=== PATIENT | male | born 1965 | race African-American/Black ===

== ENCOUNTER 2019-08-25 06:41 | Emergency (ER) | payer SELFPAY ==
[~2019-08-25] VITALS: Ht 180.3 cm; Wt 117.9 kg
[2019-08-25 07:10] LABS: BASO % 1 % (0-3); EOS # 0.1 x10^3/uL (0.0-0.7); EOS % 2 % (0-3); HEMATOCRIT 45.3 % (39.0-53.0); HEMOGLOBIN 15.4 g/dL (13.0-17.5); LYMPH # 1.6 x10^3/uL (1.0-4.8); LYMPH % 20 % (24-48); MEAN CORPUSCULAR HEMOGLOBIN 31 pg (25-35); MEAN CORPUSCULAR HGB CONC 34 g/dL (31-37); MEAN CORPUSCULAR VOLUME 90 fL (79-100); MONO # 0.3 x10^3/uL (0.0-1.1); MONO % 4 % (0-9); NEUT % 75 % (31-73); PLATELET COUNT 263 x10^3/uL (140-400); RED BLOOD COUNT 5.02 x10^6/uL (4.30-5.70); RED CELL DISTRIBUTION WIDTH 13.8 % (11.5-14.5)
[2019-08-25] MEDS: ONDANSETRON PF 4 MG/2 ML VIAL. IV ONE (07:16)
[2019-08-25] MEDS: ORPHENADRINE CITRATE 60 MG/2 ML VIAL. IV ONE (07:16)
[2019-08-25 07:17] LABS: CALCIUM 9.4 mg/dL (8.5-10.1); CREATININE 1.3 mg/dL (0.7-1.3); POTASSIUM 4.9 mmol/L (3.5-5.1)
[2019-08-25] MEDS: MORPHINE SULFATE 4 MG/ML VIAL. IV ONE (07:17)
[2019-08-25 07:23] LABS: ALBUMIN/GLOBULIN RATIO 0.9 (1.0-1.7); TOTAL BILIRUBIN 0.4 mg/dL (0.2-1.0); TOTAL PROTEIN 8.6 g/dL (6.4-8.2)
[2019-08-25] MEDS ORDERED: OXYC1TAB22 PO (07:33)
[2019-08-25] MEDS ORDERED: METH-38 PO (07:33)
[2019-08-25] MEDS ORDERED: LEVO500T59 PO (07:33)
[2019-08-25] MEDS ORDERED: PRED20TA PO (07:33)
--- NOTE | 2019-08-25 08:01 | RAD ---
AP and lateral soft tissue neck. HISTORY: Dyspnea, recent cervical laminectomy AP and lateral soft tissue views were taken of the neck. There is significant retropharyngeal soft tissue swelling. CT scan of the neck could be of benefit. There are artificial disks at C5-6 and C6-7. There is mild scoliosis on the AP view of the cervical spine. Epiglottis is not enlarged. Tonsils are not prominent. IMPRESSION: 1. Retropharyngeal soft tissue swelling. Electronically signed by: Hammad Mcmillan MD (08/25/2019 7:59 AM) [facility]
--- NOTE | 2019-08-25 08:02 | RAD ---
AP chest. HISTORY: Dyspnea, recent cervical laminectomy AP view was taken of the chest. Patient's taken a poor inspiration. There is linear atelectasis along the right diaphragm. Heart is normal in size. There is no pleural effusion. No other infiltrates are noted. IMPRESSION: 1. Poor inspiration with mild linear atelectasis right lung base. Electronically signed by: Hammad Mcmillan MD (08/25/2019 7:59 AM) [facility]
--- NOTE | 2019-08-25 08:18 | PHYS DOC ---
Past Medical History Past Medical History: No Pertinent History Past Surgical History: Other Additional Past Surgical Histo: CERVICAL LAMINECTOMY Alcohol Use: None Drug Use: None Adult General Chief Complaint Chief Complaint: SHORTNESS OF BREATH HPI HPI Patient is a 54-year-old male who presents with complaint of upper back and neck pain along with shortness of breath and painful swallowing. Patient had a cervical laminectomy on August 19 and patient has been symptomatic since that time. He denies any chest pain. Patient rates the pain in his back and a 10 out of 10. He also complains of pain around the surgical incision site.[] Review of Systems Review of Systems Constitutional: Denies fever or chills [] Respiratory: Denies cough. Complains of shortness of breath [] Cardiovascular: No additional information not addressed in HPI [] GI: Denies abdominal pain, nausea, vomiting or diarrhea [] Integument: Denies rash or skin lesions [] Neurologic: Denies headache, focal weakness or sensory changes [] All other systems were reviewed and found to be within normal limits, except as documented in this note. Current Medications Current Medications Current Medications Medications (Trade) Dose Ordered Sig/Kellen Start Time Stop Time Status Last Admin Dose Admin Info (CONTRAST GIVEN -- Rx MONITORING) 1 each PRN DAILY PRN 08/25/19 09:00 08/27/19 08:59 Iohexol (Omnipaque 300 Mg/ml) 60 ml 1X ONCE 08/25/19 09:00 08/25/19 09:01 DC 08/25/19 09:04 60 ML Lorazepam (Ativan Inj) 1 mg 1X ONCE 08/25/19 07:15 08/25/19 07:16 DC 08/25/19 07:16 1 MG Morphine Sulfate (Morphine Sulfate) 4 mg 1X ONCE 08/25/19 07:15 08/25/19 07:16 DC 08/25/19 07:17 4 MG Ondansetron HCl (Zofran) 4 mg 1X ONCE 08/25/19 07:15 08/25/19 07:16 DC 08/25/19 07:16 4 MG Orphenadrine Citrate (Norflex) 60 mg 1X ONCE 08/25/19 07:15 08/25/19 07:16 DC 08/25/19 07:16 60 MG Allergies Allergies Allergies Coded Allergies Type Severity Reaction Last Updated Verified diphenhydramine Allergy Unknown 08/25/19 Yes Uncoded Allergies Type Severity Reaction Last Updated Verified THEREFLU Allergy Unknown 08/25/19 Physical Exam Physical Exam Constitutional: Well developed, well nourished, no acute distress, non-toxic appearance. [] HENT: Normocephalic, atraumatic, bilateral external ears normal, oropharynx moist, no oral exudates, nose normal. [] Eyes: PERRLA, EOMI, conjunctiva normal, no discharge. [] Neck: Normal range of motion, no tenderness, supple, no stridor. [] Cardiovascular:Heart rate regular rhythm, no murmur [] Lungs & Thorax: Bilateral breath sounds clear to auscultation [] Abdomen: Bowel sounds normal, soft, no tenderness, no masses, no pulsatile masses. [] Skin: Warm, dry, no erythema, no rash. [] Back: No tenderness, no CVA tenderness. [] Extremities: No tenderness, no cyanosis, no clubbing, ROM intact, no edema. [] Neurologic: Alert and oriented X 3, normal motor function, normal sensory function, no focal deficits noted. [] Psychologic: Affect normal, judgement normal, mood normal. [] Current Patient Data Vital Signs Vital Signs Date Time Temp Pulse Resp B/P (MAP) Pulse Ox O2 Delivery O2 Flow Rate FiO2 08/25/19 06:54 98.0 72 16 181/99 (126) 100 Room Air 98.0 Lab Values Laboratory Tests Test 08/25/19 07:00 White Blood Count 8.0 x10^3/uL (4.0-11.0) Red Blood Count 5.02 x10^6/uL (4.30-5.70) Hemoglobin 15.4 g/dL (13.0-17.5) Hematocrit 45.3 % (39.0-53.0) Mean Corpuscular Volume 90 fL (79-100) Mean Corpuscular Hemoglobin 31 pg (25-35) Mean Corpuscular Hemoglobin Concent 34 g/dL (31-37) Red Cell Distribution Width 13.8 % (11.5-14.5) Platelet Count 263 x10^3/uL (140-400) Neutrophils (%) (Auto) 75 % (31-73) H Lymphocytes (%) (Auto) 20 % (24-48) L Monocytes (%) (Auto) 4 % (0-9) Eosinophils (%) (Auto) 2 % (0-3) Basophils (%) (Auto) 1 % (0-3) Neutrophils # (Auto) 6.0 x10^3/uL (1.8-7.7) Lymphocytes # (Auto) 1.6 x10^3/uL (1.0-4.8) Monocytes # (Auto) 0.3 x10^3/uL (0.0-1.1) Eosinophils # (Auto) 0.1 x10^3/uL (0.0-0.7) Basophils # (Auto) 0.0 x10^3/uL (0.0-0.2) Sodium Level 137 mmol/L (136-145) Potassium Level 4.9 mmol/L (3.5-5.1) Chloride Level 100 mmol/L (98-107) Carbon Dioxide Level 28 mmol/L (21-32) Anion Gap 9 (6-14) Blood Urea Nitrogen 17 mg/dL (8-26) Creatinine 1.3 mg/dL (0.7-1.3) Estimated GFR (Cockcroft-Gault) 58.0 BUN/Creatinine Ratio 13 (6-20) Glucose Level 122 mg/dL (70-99) H Calcium Level 9.4 mg/dL (8.5-10.1) Total Bilirubin 0.4 mg/dL (0.2-1.0) Aspartate Amino Transferase (AST) 17 U/L (15-37) Alanine Aminotransferase (ALT) 32 U/L (16-63) Alkaline Phosphatase 76 U/L (46-116) Troponin I Quantitative < 0.017 ng/mL (0.000-0.055) XG-Ora-Y-Type Natriuretic Peptide 28 pg/mL (0-124) Total Protein 8.6 g/dL (6.4-8.2) H Albumin 4.0 g/dL (3.4-5.0) Albumin/Globulin Ratio 0.9 (1.0-1.7) L Laboratory Tests 08/25/19 07:00 Laboratory Tests 08/25/19 07:00 EKG EKG [] Radiology/Procedures Radiology/Procedures [] Impressions: PROCEDURE: NECK SOFT TISSUE AP and lateral soft tissue neck. HISTORY: Dyspnea, recent cervical laminectomy AP and lateral soft tissue views were taken of the neck. There is significant retropharyngeal soft tissue swelling. CT scan of the neck could be of benefit. There are artificial disks at C5-6 and C6-7. There is mild scoliosis on the AP view of the cervical spine. Epiglottis is not enlarged. Tonsils are not prominent. IMPRESSION: 1. Retropharyngeal soft tissue swelling. Electronically signed by: Manuel Avery MD (08/25/2019 7:59 AM) [facility] PROCEDURE: CT SOFT TISSUE NECK W/CONTRAST CT neck with contrast. HISTORY: Dyspnea swelling noted on x-rays in the neck. CT scan the neck was done using 60 mL Omnipaque 300 contrast. Upper lobes the lungs are clear. Thyroid is homogeneous. There is no adenopathy in the neck. Parotid and submandibular glands are unremarkable. Epiglottis is unremarkable. There is retropharyngeal soft tissue swelling. A definitive abscess is not identified. There is no abnormal air in the soft tissues. There are artificial disc which create mild artifact at C5-6 and C6-7. C-spine is in normal alignment. IMPRESSION: 1. Retropharyngeal soft tissue swelling. 2. A definitive abscess is not identified. 3. No abnormal air in the soft tissues. 4. C-spine is in normal alignment. 5. Artificial disks appear in good position. PQRS Compliance Statement: One or more of the following individualized dose reduction techniques were utilized for this examination: 1. Automated exposure control 2. Adjustment of the mA and/or kV according to patient size 3. Use of iterative reconstruction technique Electronically signed by: Manuel Avery MD (08/25/2019 9:16 AM) [facility] DICTATED and SIGNED BY: MANUEL AVERY MD DATE: 08/25/19 0916 Course & Med Decision Making Course & Med Decision Making Pertinent Labs and Imaging studies reviewed. (See chart for details) [] Dragon Disclaimer Dragon Disclaimer This electronic medical record was generated, in whole or in part, using a voice recognition dictation system. Departure Departure Impression: Primary Impression: Dyspnea Additional Impressions: Muscle spasm of back Anxiety Disposition: HOME, SELF-CARE Condition: STABLE Referrals: NON,STAFF (PCP) Patient Instructions: Anxiety and Panic Attacks, Back Pain, Adult, Muscle Cramps Scripts Diazepam (VALIUM) 5 Mg Tablet 5 MG PO BID PRN for ANXIETY / AGITATION, #14 TAB Prov: DYLON GUALLPA Jr. DO 08/25/19 Orphenadrine Citrate (ORPHENADRINE CITRATE) 100 Mg Tablet.er 1 TAB PO BID PRN for MUSCLE SPASMS, #14 TAB Prov: DYLON GUALLPA Jr. DO 08/25/19 Problem Qualifiers Primary Impression: Dyspnea Dyspnea type: unspecified Qualified Codes: R06.00 - Dyspnea, unspecified DYLON GUALLPA Jr. DO Aug 25, 2019 08:18
[2019-08-25] MEDS ORDERED: CONTRAST GIVEN. MC PRN (09:00)
[2019-08-25] MEDS: IOHEXOL 300 MG/ML 100ML VIAL. IV ONE (09:04)
--- NOTE | 2019-08-25 09:19 | RAD ---
CT neck with contrast. HISTORY: Dyspnea swelling noted on x-rays in the neck. CT scan the neck was done using 60 mL Omnipaque 300 contrast. Upper lobes the lungs are clear. Thyroid is homogeneous. There is no adenopathy in the neck. Parotid and submandibular glands are unremarkable. Epiglottis is unremarkable. There is retropharyngeal soft tissue swelling. A definitive abscess is not identified. There is no abnormal air in the soft tissues. There are artificial disc which create mild artifact at C5-6 and C6-7. C-spine is in normal alignment. IMPRESSION: 1. Retropharyngeal soft tissue swelling. 2. A definitive abscess is not identified. 3. No abnormal air in the soft tissues. 4. C-spine is in normal alignment. 5. Artificial disks appear in good position. PQRS Compliance Statement: One or more of the following individualized dose reduction techniques were utilized for this examination: 1. Automated exposure control 2. Adjustment of the mA and/or kV according to patient size 3. Use of iterative reconstruction technique Electronically signed by: Hammad Mcmillan MD (08/25/2019 9:16 AM) [facility]
[2019-08-25] MEDS ORDERED: ORPH100T PO (09:41)
[2019-08-25] MEDS ORDERED: DIAZ5TAB PO (09:41)
[2019-08-25 09:42] VITALS: BP 150/92
--- NOTE | 2019-08-26 07:29 | EKG ---
[facility] [address] [place] [address] Test Date: 2019-08-25 Test Time: 06:50:39 Pat Name: ZHANE HOOD Department: Room: Gender: M Paleologist: : 1965 Requested By: DYLON GUALLPA Order Number: [id number] Reading MD: Measurements Intervals [place] Rate: 69 P: 34 ME: 128 QRS: 4 QRSD: 78 T: 3 QT: 356 QTc: 383 Interpretive Statements SINUS RHYTHM NO SPECIFIC ECG ABNORMALITIES RI6.01 No previous ECG available for comparison
== END 2019-08-25 09:45 | disposition home or self-care (01) ==
LOC: ER 06:41
DX: R06.00 Dyspnea, unspecified (principal); M62.830 Muscle spasm of back; F41.9 Anxiety disorder, unspecified; Z98.890 Other specified postprocedural states; Z88.8 Allergy status to other drugs, medicaments and biological substances; Z79.899 Other long term (current) drug therapy
CPT/HCPCS: 36415; 70360; 70491; 71045; 80053; 83880; 84484; 85025; 93005; 96374; 96375; 99285; J2060; J2270; J2360; J2405; Q9967

== ENCOUNTER 2021-12-15 23:35 | Emergency (ER) | payer MEDICAID ==
[~2021-12-15] VITALS: Ht 180.3 cm; Wt 84.0 kg
[~2021-12-15 23:35] MED LIST: CYCL10TA19 PO; DIAZ5TAB PO; HYDR-2769 PO; LEVO500T59 PO; METH-38 PO; METH-562 PO; ORPH100T PO; OXYC1TAB22 PO; PRED20TA PO; SULF-16 PO; SULF1TAB23 PO; TAPE50TA10 PO
[2021-12-16 00:28] LABS: BASO % 1 % (0-3); EOS # 0.2 x10^3/uL (0.0-0.7); EOS % 3 % (0-3); HEMATOCRIT 40.8 % (39.0-53.0); HEMOGLOBIN 13.8 g/dL (13.0-17.5); LYMPH # 1.6 x10^3/uL (1.0-4.8); LYMPH % 25 % (24-48); MEAN CORPUSCULAR HEMOGLOBIN 31 pg (25-35); MEAN CORPUSCULAR HGB CONC 34 g/dL (31-37); MEAN CORPUSCULAR VOLUME 90 fL (79-100); MONO # 0.6 x10^3/uL (0.0-1.1); MONO % 9 % (0-9); NEUT # 4.2 x10^3/uL (1.8-7.7); NEUT % 64 % (31-73); PLATELET COUNT 234 x10^3/uL (140-400); RED BLOOD COUNT 4.52 x10^6/uL (4.30-5.70); WHITE BLOOD COUNT 6.5 x10^3/uL (4.0-11.0)
[2021-12-16] MEDS ORDERED: CONTRAST GIVEN. MC PRN (00:30)
[2021-12-16 00:44] LABS: CALCIUM 9.1 mg/dL (8.5-10.1); CREATININE 1.2 mg/dL (0.7-1.3); GFR 76.3; POTASSIUM 4.2 mmol/L (3.5-5.1)
[2021-12-16 00:50] LABS: ALBUMIN 3.8 g/dL (3.4-5.0); ALBUMIN/GLOBULIN RATIO 1.1 (1.0-1.7); TOTAL BILIRUBIN 0.5 mg/dL (0.2-1.0); TOTAL PROTEIN 7.2 g/dL (6.4-8.2)
[2021-12-16] MEDS ORDERED: KETOROLAC 15 MG/ML VIAL. IVP ONE (01:00)
[2021-12-16] MEDS ORDERED: DICYCLOMINE 20 MG/2 ML VIAL. IM ONE (01:00)
[2021-12-16] MEDS ORDERED: IOHEXOL 350 MG/ML 100 ML VIAL. IV ONE (01:00)
[2021-12-16] MEDS ORDERED: IV NORMAL SALINE 1000ML BAG 1,000 ML IV ONE (01:00)
[2021-12-16] MEDS ORDERED: MORPHINE SULFATE 4 MG/ML INJ. IVP ONE (01:00)
[2021-12-16 03:52] VITALS: BP 175/97
--- NOTE | 2021-12-16 04:58 | PHYS DOC ---
Past Medical History Past Medical History: No Pertinent History Past Surgical History: Cervical Fusion, Lumbar Laminectomy, Other Additional Past Surgical Histo: Hernia repair Monday Smoking Status: Never Smoker Alcohol Use: None Drug Use: None Adult General Chief Complaint Chief Complaint: SHORTNESS OF BREATH [facility] HPI Patient is a 56 year old [f__sex] who presents with [] Review of Systems Review of Systems Constitutional: Denies fever or chills [] Eyes: Denies change in visual acuity, redness, or eye pain [] HENT: Denies nasal congestion or sore throat [] Respiratory: Denies cough or shortness of breath [] Cardiovascular: No additional information not addressed in HPI [] GI: Denies abdominal pain, nausea, vomiting, bloody stools or diarrhea [] : Denies dysuria or hematuria [] Musculoskeletal: Denies back pain or joint pain [] Integument: Denies rash or skin lesions [] Neurologic: Denies headache, focal weakness or sensory changes [] Endocrine: Denies polyuria or polydipsia [] All other systems were reviewed and found to be within normal limits, except as documented in this note. Current Medications Current Medications Current Medications Medications (Trade) Dose Ordered Sig/Kellen Start Time Stop Time Status Last Admin Dose Admin Dicyclomine HCl (Bentyl) 20 mg 1X ONCE 12/16/21 01:00 12/16/21 01:01 DC Info (CONTRAST GIVEN -- Rx MONITORING) 1 each PRN DAILY PRN 12/16/21 00:30 12/18/21 00:29 Iohexol (Omnipaque 350 Mg/ml) 100 ml 1X ONCE 12/16/21 01:00 12/16/21 01:01 DC Ketorolac Tromethamine (Toradol 15mg Vial) 15 mg 1X ONCE 12/16/21 01:00 12/16/21 01:01 DC Morphine Sulfate (Morphine Sulfate) 4 mg 1X ONCE 12/16/21 01:00 12/16/21 01:01 DC Sodium Chloride 1,000 ml @ 1,000 mls/hr 1X ONCE 12/16/21 01:00 12/16/21 01:59 Allergies Allergies Allergies Coded Allergies Type Severity Reaction Last Updated Verified acetaminophen Allergy Intermediate 12/16/21 Yes dextromethorphan Allergy Intermediate 12/16/21 Yes diphenhydramine Allergy Intermediate 12/16/21 Yes phenylephrine Allergy Intermediate 12/16/21 Yes Physical Exam Physical Exam Constitutional: Well developed, well nourished, no acute distress, non-toxic appearance. [] HENT: Normocephalic, atraumatic, bilateral external ears normal, oropharynx moist, no oral exudates, nose normal. [] Eyes: PERRLA, EOMI, conjunctiva normal, no discharge. [] Neck: Normal range of motion, no tenderness, supple, no stridor. [] Cardiovascular:Heart rate regular rhythm, no murmur [] Lungs & Thorax: Bilateral breath sounds clear to auscultation [] Abdomen: Bowel sounds normal, soft, no tenderness, no masses, no pulsatile masses. [] Skin: Warm, dry, no erythema, no rash. [] Back: No tenderness, no CVA tenderness. [] Extremities: No tenderness, no cyanosis, no clubbing, ROM intact, no edema. [] Neurologic: Alert and oriented X 3, normal motor function, normal sensory function, no focal deficits noted. [] Psychologic: Affect normal, judgement normal, mood normal. [] Current Patient Data Vital Signs Vital Signs Date Time Temp Pulse Resp B/P (MAP) Pulse Ox O2 Delivery O2 Flow Rate FiO2 12/15/21 23:51 74 180/87 (118) 97 12/15/21 23:50 98.3 20 Room Air 98.3 Lab Values Laboratory Tests Test 12/16/21 00:10 White Blood Count 6.5 x10^3/uL (4.0-11.0) Red Blood Count 4.52 x10^6/uL (4.30-5.70) Hemoglobin 13.8 g/dL (13.0-17.5) Hematocrit 40.8 % (39.0-53.0) Mean Corpuscular Volume 90 fL (79-100) Mean Corpuscular Hemoglobin 31 pg (25-35) Mean Corpuscular Hemoglobin Concent 34 g/dL (31-37) Red Cell Distribution Width 14.0 % (11.5-14.5) Platelet Count 234 x10^3/uL (140-400) Neutrophils (%) (Auto) 64 % (31-73) Lymphocytes (%) (Auto) 25 % (24-48) Monocytes (%) (Auto) 9 % (0-9) Eosinophils (%) (Auto) 3 % (0-3) Basophils (%) (Auto) 1 % (0-3) Neutrophils # (Auto) 4.2 x10^3/uL (1.8-7.7) Lymphocytes # (Auto) 1.6 x10^3/uL (1.0-4.8) Monocytes # (Auto) 0.6 x10^3/uL (0.0-1.1) Eosinophils # (Auto) 0.2 x10^3/uL (0.0-0.7) Basophils # (Auto) 0.0 x10^3/uL (0.0-0.2) Sodium Level 138 mmol/L (136-145) Potassium Level 4.2 mmol/L (3.5-5.1) Chloride Level 102 mmol/L (98-107) Carbon Dioxide Level 28 mmol/L (21-32) Anion Gap 8 (6-14) Blood Urea Nitrogen 12 mg/dL (8-26) Creatinine 1.2 mg/dL (0.7-1.3) Estimated GFR (Cockcroft-Gault) 76.3 BUN/Creatinine Ratio 10 (6-20) Glucose Level 103 mg/dL (70-99) H Calcium Level 9.1 mg/dL (8.5-10.1) Total Bilirubin 0.5 mg/dL (0.2-1.0) Aspartate Amino Transferase (AST) 21 U/L (15-37) Alanine Aminotransferase (ALT) 21 U/L (16-63) Alkaline Phosphatase 78 U/L (46-116) Total Protein 7.2 g/dL (6.4-8.2) Albumin 3.8 g/dL (3.4-5.0) Albumin/Globulin Ratio 1.1 (1.0-1.7) Laboratory Tests 12/16/21 00:10 Laboratory Tests 12/16/21 00:10 EKG EKG [] Radiology/Procedures Radiology/Procedures [] Course & Med Decision Making Course & Med Decision Making Pertinent Labs and Imaging studies reviewed. (See chart for details) [] Dragon Disclaimer Dragon Disclaimer This electronic medical record was generated, in whole or in part, using a voice recognition dictation system. Departure Departure Referrals: NO PCP (PCP) YORDY LUONG MD Dec 16, 2021 01:04
--- NOTE | 2021-12-16 06:40 | RAD ---
EXAM: CT ANGIOGRAM CHEST ABDOMEN AND PELVIS WITH CONTRAST INDICATION: Abdominal pain and distention. Recent ventral hernia repair 4 days ago. COMPARISON: CT chest abdomen pelvis 06/04/2020 TECHNIQUE: Helical CT angiogram imaging performed of the chest, abdomen and pelvis after administrati on of intravenous contrast. Sagittal and coronal reformats were obtained. MIPs were obtained. One or more of the following individualized dose reduction techniques were utilized for this examinat ion: 1. Automated exposure control 2. Adjustment of the mA and/or kV according to patient size 3. Use of iterative reconstruction technique. FINDINGS: CHEST: Pulmonary arteries: Contrast bolus is adequate to evaluate pulmonary arteries. There is no acute pulm onary embolism. Thyroid gland and thoracic inlet: Visual is portion of the thyroid gland is normal. Thoracic inlet is normal. Heart and great vessels: The heart is normal in size. There are coronary artery calcifications. Thora cic aorta is normal in caliber. No aortic dissection. Mediastinum and elio: No lymphadenopathy. Lungs and pleura: There are bandlike consolidative opacities in the left lower lobe. Mild scattered a telectasis elsewhere. A 6 cm nodule in the right lower lobe and a few 3 mm nodules in the right middl e lobe are unchanged from 06/04/2020 and require no follow-up. Unchanged calcified granulomas and scar ring in the right upper lobe. No pleural effusion or pneumothorax. Chest wall and axillae: No axillary lymphadenopathy. Bones: No acute osseous abnormality. ABDOMEN AND PELVIS: Liver: There is a calcified granuloma in the dome of the liver. No focal liver lesion. Gallbladder/Biliary Tree: Normal. Pancreas: Normal. Spleen: Normal. Adrenal Glands: Normal. Kidneys/Ureters/Bladder: Normal. No hydronephrosis. Reproductive Organs: Prostate gland is normal. Stomach, small bowel, and colon: The stomach is normal. There are mildly distended loops of distal sm all bowel. There is fecal material in the terminal ileum. Large volume of stool in the right hemicolo n. Mostly gas in the left hemicolon. There is sigmoid diverticulosis. Vasculature: No aortic aneurysm. Lymph Nodes: No lymphadenopathy. Peritoneum and retroperitoneum: There are surgical clips along the gastrohepatic ligament. Small amou nt of free air in the lower anterior abdomen and scattered subcutaneous gas in the anterior abdominal wall, likely related to recent ventral hernia repair. Bones: There are surgical changes of posterior fusion at L5-S1. IMPRESSION: 1. No acute pulmonary embolism. 2. Bandlike confluent opacities in the left lower lobe, likely atelectasis. Pneumonia not entirely ex cluded. 3. Mildly distended distal small bowel without transition point. There is fecal material in the termi nal ileum and a large volume of stool in the right hemicolon. Findings may relate to constipation. Pa rtial small bowel obstruction not excluded. 4. Small amount of free air in the anterior abdomen and subcutaneous gas in the abdominal wall, likel y postoperative from recent ventral hernia repair. Findings discussed by Dr. All Trevino at 2:22 AM on 12/16/2021 Electronically signed by: Nichole Carrizales MD (12/16/2021 6:38 AM) [facility]
== END 2021-12-16 04:00 | disposition short-term general hospital (02) ==
LOC: ER 23:35
DX: R06.02 Shortness of breath (principal); Z88.5 Allergy status to narcotic agent; Z88.6 Allergy status to analgesic agent; Z88.8 Allergy status to other drugs, medicaments and biological substances
CPT/HCPCS: 36415; 71275; 74177; 80053; 85025; 96374; 96375; 99285; J1885; J2270; Q9967